=== PATIENT | female | born 1965 | race Caucasian/White ===

== ENCOUNTER → 2018-11-24 | Outpatient (CLI) | payer BC ==
[~2018-11-24] MED LIST: PERCR 7.5
== END ==
LOC: MC.RAD 07:30
DX: Z12.31 Encounter for screening mammogram for malignant neoplasm of breast (principal)

== ENCOUNTER → 2021-03-25 | Outpatient (CLI) | payer BC | LOC: COL.RAD 07:50 | DX: M25.541 Pain in joints of right hand (principal); M25.542 Pain in joints of left hand | CPT/HCPCS: J3301; Q9967 ==

== ENCOUNTER → 2021-07-14 | Outpatient (CLI) | payer BC | LOC: COL.RAD 12:40 | DX: M18.11 Unilateral primary osteoarthritis of first carpometacarpal joint, right hand (principal); M25.541 Pain in joints of right hand | CPT/HCPCS: J3301; Q9967 ==

== ENCOUNTER → 2022-02-25 | Outpatient (CLI) | payer BC | LOC: COL.RAD 07:51 | DX: M18.11 Unilateral primary osteoarthritis of first carpometacarpal joint, right hand (principal) | CPT/HCPCS: J3301; Q9967 ==

== ENCOUNTER → 2022-07-22 | Outpatient (CLI) | payer BC | LOC: MC.RAD 09:17 | DX: Z12.31 Encounter for screening mammogram for malignant neoplasm of breast (principal) ==

== ENCOUNTER → 2023-11-01 | Outpatient (CLI) | payer BC ==
[~2023-11-01] VITALS: Ht 170.2 cm; Wt 84.6 kg
[~2023-11-01] MED LIST changes: +ARMOUR THYROID15 MG PO; +PROZAC 10MG10 MG PO; +Triamcinolone 40 MG/ML 1 ML VIAL IJ SCH
[2023-11-01 07:21] VITALS: BP 103/70; PULSE 64; TEMP 97.8
[2023-11-01 07:53] VITALS: BP 116/77; PULSE 63
== END ==
LOC: COL.RAD 07:00
DX: M43.16 Spondylolisthesis, lumbar region (principal)
CPT/HCPCS: J0665; J3301

== ENCOUNTER → 2023-12-15 | Outpatient (CLI) | payer BC ==
[~2023-12-15] MED LIST changes: -Triamcinolone 40 MG/ML 1 ML VIAL IJ SCH
== END ==
LOC: MHCPAIN 09:11
DX: M47.817 Spondylosis without myelopathy or radiculopathy, lumbosacral region (principal); M54.50 Low back pain, unspecified; E03.9 Hypothyroidism, unspecified; M96.1 Postlaminectomy syndrome, not elsewhere classified
CPT/HCPCS: G0463

== ENCOUNTER → 2024-02-07 | Outpatient (CLI) | payer BC | LOC: MHCPAIN 12:59 | DX: M47.817 Spondylosis without myelopathy or radiculopathy, lumbosacral region (principal); M54.50 Low back pain, unspecified | CPT/HCPCS: J0665 ==

== ENCOUNTER → 2024-02-14 | Outpatient (CLI) | payer BC | LOC: MHCPAIN 08:24 | DX: M43.16 Spondylolisthesis, lumbar region (principal); M47.816 Spondylosis without myelopathy or radiculopathy, lumbar region; M48.07 Spinal stenosis, lumbosacral region; M54.50 Low back pain, unspecified; E03.9 Hypothyroidism, unspecified | CPT/HCPCS: G0463 ==

== ENCOUNTER → 2024-03-23 | Outpatient (CLI) | payer BC ==
[~2024-03-23] MED LIST changes: +Lidocaine PF 2% (20 MG/ML) 5 ML VIAL ONE; +Midazolam 2 MG/2 ML VIAL ONE; +fentaNYL 50 MCG/ML 2 ML VIAL ONE
== END ==
LOC: MHCPAIN 12:50
DX: M47.817 Spondylosis without myelopathy or radiculopathy, lumbosacral region (principal); M54.50 Low back pain, unspecified
CPT/HCPCS: J0665; J2250; J3010

== ENCOUNTER → 2024-03-30 | Outpatient (CLI) | payer BC | LOC: MHCPAIN 12:15 | DX: M47.817 Spondylosis without myelopathy or radiculopathy, lumbosacral region (principal); M54.50 Low back pain, unspecified | CPT/HCPCS: J0665; J2250; J3010 ==

== ENCOUNTER → 2024-05-29 | Outpatient (CLI) | payer BC ==
[~2024-05-29] MED LIST changes: -Lidocaine PF 2% (20 MG/ML) 5 ML VIAL ONE; -Midazolam 2 MG/2 ML VIAL ONE; -fentaNYL 50 MCG/ML 2 ML VIAL ONE
== END ==
LOC: MHCPAIN 08:45
DX: M54.50 Low back pain, unspecified (principal); M43.16 Spondylolisthesis, lumbar region; M47.816 Spondylosis without myelopathy or radiculopathy, lumbar region; M48.061 Spinal stenosis, lumbar region without neurogenic claudication
CPT/HCPCS: G0463

== ENCOUNTER → 2024-05-30 | Outpatient (CLI) | payer BC | LOC: COL.RAD 16:05 | DX: M43.16 Spondylolisthesis, lumbar region (principal) ==